=== PATIENT | female | born 1970 | race Caucasian/White ===

== ENCOUNTER → 2018-10-17 | Outpatient (CLI) | payer OTHER ==
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
== END | disposition home or self-care (01) ==
LOC: RAD 12:28
PROVIDERS: ATTEND Internal Medicine
DX: M89.38 Hypertrophy of bone, other site (principal)
CPT/HCPCS: 71046

== ENCOUNTER → 2019-03-23 | Outpatient (CLI) | payer OTHER ==
--- NOTE | 2019-03-23 13:28 | KCIC ---
EXAM: Left index finger, 3 views. HISTORY: Dog bite. COMPARISON: None. FINDINGS: 3 views of the left index finger are obtained. There is no fracture, dislocation or subluxation. There is no radiodense foreign body. There is a tiny ossific excrescence possibly due to a spur along the dorsal base of the second distal phalanx. IMPRESSION: No acute osseous finding. Electronically signed by: Selena Viera MD (03/23/2019 1:26 PM) [id number]
== END | disposition home or self-care (01) ==
LOC: KCIC 12:30
PROVIDERS: ATTEND Internal Medicine
DX: S61.251A Open bite of left index finger without damage to nail, initial encounter (principal); W54.0XXA Bitten by dog, initial encounter; Y93.89 Activity, other specified; Y92.89 Other specified places as the place of occurrence of the external cause; Y99.8 Other external cause status
CPT/HCPCS: 73140